=== PATIENT | male | born 2000 | race Caucasian/White ===

== ENCOUNTER 2025-06-08 10:50 | Emergency (ER) | payer OTHER, SELFPAY ==
--- NOTE | ~2025-06-08 | XR_ITS ---
EXAMINATION: XR KNEE, LEFT CLINICAL INFORMATION: fall. knee injury COMPARISON: None available. TECHNIQUE: Four views of the left knee. FINDINGS: Intercondylar tubercles are mildly peaked. There is a small amount of visible joint fluid. No fracture line identified. XR/XR knee LT 4V IMPRESSION: No fracture is demonstrated. Electronically signed by: Blair Beaver MD 06/08/2025 11:32 AM EDT
--- NOTE | ~2025-06-08 | XR_ITS ---
Exam: CR Xr Tibia Fibula Lt 2v TECHNIQUE: AP and lateral x-rays lower extremity, left tibia fibula INDICATION: Fall with pain, mid barrett Prior: None FINDINGS: No fracture, deformity, or foreign body is identified. Impression Unremarkable left lower leg Electronically signed by: Blair Beaver MD 06/08/2025 11:31 AM EDT RP
--- NOTE | ~2025-06-08 | CT_ITS ---
EXAMINATION: CT ABDOMEN PELVIS WITH IV CONTRAST HISTORY: AP, hx of adult intususseption COMPARISON: There are no prior studies for available comparison. TECHNIQUE: CT scan of the abdomen and pelvis was performed following administration of 85 mL Omnipaque 350 using standard departmental protocol. Coronal and sagittal reformatted images were generated and reviewed. This CT exam was performed with one or more of the following dose reduction techniques: automated exposure control, adjustment of the mA and/or kV according to patient size, use of iterative reconstruction technique. DLP: 291 mGy-cm FINDINGS: LOWER CHEST: The visualized lung bases are clear. There is no pleural effusion. CARDIOVASCULATURE: The heart is normal in size. There is no pericardial effusion. LIVER: The liver is normal in size and contour. No liver mass is identified. The hepatic and portal veins are patent. GALLBLADDER / BILE DUCTS: The gallbladder is unremarkable. There is no intra or extrahepatic biliary ductal dilatation. SPLEEN: The spleen is normal in size. No focal splenic lesion is identified. PANCREAS: The pancreas is unremarkable in appearance. ADRENAL GLANDS: Within normal limits. KIDNEYS/RETROPERITONEUM: No renal calculi are identified. There is no hydronephrosis. No renal masses are identified. LYMPH NODES: There are mesenteric lymph nodes in the right lower quadrant. Larger lymph nodes are upper normal in size measuring 9 to 10 mm in short axis. No enlarged lymph nodes. VASCULATURE: The abdominal aorta is normal in caliber. MESENTERY/PERITONEUM: No free fluid. No masses. There is no free intraperitoneal gas. STOMACH: Not optimally distended. Difficult to exclude mild circumferential proximal gastric wall or fold thickening. SMALL BOWEL: Mild wall thickening of the terminal ileum. Small bowel otherwise normal. No evidence of obstruction. No mass or intussusception seen. COLON: Mild wall thickening of the cecum and proximal ascending colon. Colon otherwise unremarkable. APPENDIX: Normal. URINARY BLADDER/PELVIC ORGANS: The urinary bladder is unremarkable. Prostate gland does not appear enlarged. BONES / SOFT TISSUES: No suspicious bony or soft tissue abnormalities. CT/CT abdomen pelvis w IV con IMPRESSION: Mild wall thickening of the terminal ileum, cecum and proximal ascending colon suggestive of ileocolitis. Upper normal-sized right lower quadrant mesenteric lymph nodes. No evidence of intussusception or obstruction. Electronically signed by: Debby Perez MD 06/08/2025 02:18 PM EDT RP
[2025-06-08 10:54] VITALS: BP 103/56; PULSE 78; RESP 18; TEMP 36.6; O2SAT 98; BMI 18.8
--- NOTE | 2025-06-08 10:58 | ED_ITS ---
HPI - General Adult General Chief complaint: Abdominal Pain Stated complaint: N/V/D Time Seen by Provider: 06/08/25 11:05 Source: patient and RN notes reviewed Mode of arrival: ambulatory Limitations: no limitations History of Present Illness ED Provider: Dari Trinidad PA-C HPI narrative: This is a 24-year-old male, with no known medical problems, who presents emergency department with concerns of nausea, vomiting, diarrhea for the last 4- 5 days. Patient denies any sick contacts. Denies any recent illness. He denies any fevers, chills, chest pain, shortness of breath. No bloody or black stool. He states that he has a history of intussusception as an adult, in his concerned that this may be causing him to have the symptoms. He does endorse marijuana use, no alcohol or any other drug use. Denies taking any medications prior to his arrival today. No other complaints or concerns at this time. Patient also reports left barrett pain after tripping on a step and landing into a metal bracket on the step. This occurred yesterday. No head strike or LOC. Pain worsens with weight-bearing. He is unsure when his last tetanus shot was. MD complaint: Nausea, vomiting, diarrhea Onset (ago): day(s) Relieving factors: none Exacerbating factors: none Associated symptoms: denies other symptoms Treatments prior to arrival: none Related Data Previous Rx's ?Medication ?Instructions ?Recorded metoclopramide HCl 10 mg tablet 10 mg PO Q6H PRN nause a and 02/06/24 (Reglan) vomiting #30 tabs omeprazole 40 mg capsule,delayed 40 mg PO DAILY #14 ca ps 02/06/24 release ketorolac 10 mg tablet 10 mg PO Q6H PRN pain #20 ta bs 10/28/24 methocarbamol 750 mg tablet 750 mg PO Q8H PRN pain, mo derate 10/28/24 #15 tabs oxycodone 5 mg tablet 5 mg PO Q6H PRN pain #16 tab s 10/28/24 amoxicillin 875 mg-potassium 1 tab PO BID 7 days #14 t abs 06/08/25 clavulanate 125 mg tablet oxycodone 5 mg tablet 5 mg PO Q6H PRN severe pain (scale 06/08/25 score 7-10) #12 tabs Allergies Allergy/AdvReac Type Severity Reaction Status Date / Time No Known Allergies Allergy Verified 06/08/25 10:56 Review of Systems 2 Review of Systems: Constitutional : No Fever, No Chills ENT/Mouth : No sore throat, No Rhinorrhea Eyes: No Eye Pain, No Swelling, No Redness Cardiovascular : No Chest Pain, No SOB Respiratory : No Cough, No Sputum Gastrointestinal : + Nausea, + Vomiting,+ Diarrhea, + abdominal Pain Genitourinary : No Dysuria, No Hematuria Musculoskeletal : No joint pain, No Myalgias, No Joint Swelling Skin : No Skin Lesions Neuro : No Weakness, No Numbness, No Headache All other systems reviewed and are negative Yes all other systems are reviewed and are negative Constitutional: Constitutional: Reports as per [facility] Past Medical History Medical History (Updated 06/09/25 @ 00:00 by Gage Martin) Cyclical vomiting Social History Social History (System 06/04/25 @ 07:43 by Mile Chapman) Patient Tobacco Use Status: Never used Tobacco Substance Use Type: Marijuana Advance Directives: No Advance Directives Information Provided: Yes Do you have a plan to hurt others: No Plan Physical Exam ED Vital Signs: Vital Signs - 24 hr 06/08/25 15:41 06/08/25 16:36 06/08/25 18:31 Temperature 97.5 F 97.5 F Pulse Rate 93 68 Respiratory Rate 14 18 Blood Pressure 102/48 L 107/56 L 103/54 L Pulse Oximetry 100 99 Oxygen Delivery Method Room Air Room Air 06/08/25 18:34 Temperature 97.5 F Pulse Rate 68 Respiratory Rate 18 Blood Pressure 103/54 L Pulse Oximetry 99 Oxygen Delivery Method Room Air BMI result Body Mass Index 18.8 Const General: cooperative, comfortable and no acute distress Orientation/consciousness: patient oriented x3 Limitations: no limitations HENMT Head: Yes normal to inspection, Yes normocephalic and Yes atraumatic Ears: hearing grossly normal bilaterally General nose exam: Normal external nose present Face and sinus: Yes normal facial exam Mouth: Normal oral and palatal mucosa present, oropharynx normal and moist mucous membranes Throat: Yes posterior oropharynx normal Eyes General: appearance normal, both eyes and all related structures Eyelids: Yes eyelids normal Conjunctivae: conjunctivae normal Sclerae: sclerae normal Pupils: Equal, round and reactive pupils present EOM: EOMs intact bilaterally Neck Neck: Yes normal visual inspection, Yes full ROM and Yes no lymphadenopathy Lymphatic: no lymphadenopathy noted Chest Chest palpation & inspection: normal inspection of the chest Resp Effort & Inspection: normal respiratory effort and able to speak in complete sentences Auscultation: clear to auscultation bilaterally, no crackles, no rales, no rhonchi and no wheezes Cardio Rate: regular rate Rhythm: regular rhythm Heart sounds: S1 normal heart sound present and S2 normal heart sound present GI Other: Abdomen is soft, with tenderness palpation in the periumbilical region, and suprapubic region. No rebound or guarding. Normoactive bowel sounds present in all 4 quadrants. Inspection: Yes normal to inspection Skin General skin exam: no rashes or lesions noted Trauma: no lacerations or abrasions Wounds: no wounds Neuro General: patient oriented x3 and moves all extremities Cranial nerves: Yes Equal, round and reactive pupils present Extrem Other: Left proximal tibia with superficial abrasion noted, tender to palpation, full ROM of the knee, no tenderness throughout the knee. General: Yes normal to inspection Right upper extremity: normal to inspection Left upper extremity: normal to inspection Right lower extremity: normal to inspection Left lower extremity: normal to inspection Course Course Course Narrative: RME: 24 yold male with pmh of insuspection presents to the ED for adominal pain, nausea, vomitting, and diarrhea for 3 days. secondary complaitn is left leg/barrett after hitting leg on going up the stairs. patient states no head trauam. labs and xray ordered Reevaluation(s) Reevaluation #1: Patient received in sign-out at change of shift pending re-evaluation. The patient does complain of some left upper abdominal pain. He reports a history of stomach ulcers and GI bleeding. He has been taking ibuprofen for his pain I encouraged him to discontinue the ibuprofen. He will continue Tylenol and I agree to give him a short course of oxycodone for breakthrough pain. He will be referred to GI and will be given the Augmentin that was read recommended by GI. He was able to pass a p.o. trial with no further vomiting. I also recommended the patient consume a bland diet. The patient reports he had a colonoscopy 1 month ago at [facility]. However he reports that there were only looking for hemorrhoids and I suspect there may have only performed with sigmoidoscopy. The patient will be referred back to GI Time: 18:23 Medications Administered Discontinued Medications Generic Name Dose Route Start Last Admin Trade Name Robin PRN Reason Stop Dose Admin Bacitracin 1 appl 06/08/25 14:06 06/08/25 14:24 Bacitracin Oint 0.9 Gm Packet TOPICAL 06/08/25 14:07 1 appl ONCE ONE Administration Protocol Diatrizoate Meglum/Diatrizoate Sod 30 ml 06/08/25 13:59 06/08/25 13:59 Diatrizoate Meglumine, Sodium 30 Ml Solution PO 06/08/25 14:00 30 ml ONCE ONE Administration Diphtheria/Tetanus/Acell Pertussis 0.5 ml 06/08/25 14:06 06/08/25 14:22 Diphth,Pertus(Acell),Tet Adult 0.5 Ml Syringe IM 06/08/25 14:07 0.5 ml .ONCE ONE Administration Sodium Chloride 1,000 mls @ 999 mls/hr 06/08/25 11:44 06/08/25 13:00 Ns IV 06/08/25 12:44 Infused .Q1H1M ONE Infusion Iohexol 100 ml 06/08/25 13:57 06/08/25 13:58 Iohexol 350 Mg/Ml 100 Ml Infus..Btl IV 06/08/25 13:58 85 ml ONCE ONE Administration Ketorolac Tromethamine 15 mg 06/08/25 17:22 06/08/25 17:28 Ketorolac Tromethamine 15 Mg/Ml Vial IVPUSH 06/08/25 17:23 15 mg ONCE ONE Administration Ondansetron HCl 4 mg 06/08/25 11:54 06/08/25 11:57 Ondansetron Hcl 4 Mg/2 Ml Vial IVPUSH 06/08/25 11:55 4 mg ONCE ONE Administration Medical Decision Making Medical Decision Making MDM Narrative: This is a 24-year-old male, with a past medical history of intussusception as an adult not requiring any intervention, who presents emergency department with concerns of nausea, vomiting, diarrhea times 4-5 days. On arrival, blood pressure mildly low at 103/56, he is afebrile, nontoxic appearing, speaking in full sentences under no acute distress. Abdomen is soft, with tenderness palpation in the periumbilical region as well as the suprapubic region. Differential diagnoses include acute gastroenteritis, gastritis, intussusception-unlikely, cyclical vomiting syndrome, electrolyte derangement. Will obtain labs to rule out any electrolyte derangement. 2:07 PM 06/08/2025 (Dari Trinidad PA-C): Labs returned, no leukocytosis, stable H&H, chemistry revealing no significant electrolyte derangement. COVID, flu, negative. Tib-fib, knee x-ray unremarkable. Awaiting CT abdomen and pelvis. We ordered this with IV and oral contrast given history of intussusception. 3:05 PM 06/08/2025 (Dari Trinidad PA-C): Patient re-evaluated, feeling much better after receiving IV fluids and Zofran. CT abdomen and pelvis returns revealing mild wall thickening of the terminal ileum, cecum, and proximal ascending colon suggestive of ileocolitis. I discussed this with Dr. Glasgow, he does report that patient can be admitted if his pain is intractable, or is unable to tolerate p.o.. Patient was re-evaluated, he is feeling much better after receiving IV fluids and IV antiemetics. I discussed with the Dr. Glasgow, he recommends obtaining stool sample. He is unable to obtain this. Dr. Glasgow states that he does recommend starting on antibiotics for treatment, and can follow-up outpatient, also recommending outpatient stool studies, however we can get I am started on antibiotics in the meantime. My attending physician recommended adding ESR and CRP. 5:07 PM 06/08/2025 (Dari Trinidad PA-C): Still awaiting ESR and CRP at this time. Called the laboratory, state that it will be another 15-20 minutes. We had updated patient's tetanus in the department, also given Lupillo wrap for leg. 5:23 PM 06/08/2025 (Dari Trinidad PA-C): ESR negative, patient re-evaluated, states that he is in a your lot of pain now. Patient has not received any pain medication throughout his entire ER stay. As mentioned before, Dr. Glasgow recommends if his pain is intolerable, and he is unable to tolerate p.o., he could be managed inpatient for further management. Sign-out given to my colleague, Ziggy O'Giorgio, PA-C pending re-evaluation plus or minus admission. Differential Diagnosis Differential Diagnoses: The differential diagnosis associated with the presentation includes See above Admission/Observation Consideration of admission/observation: Escalation of care including admission/observation considered Lab Data MDM Lab Attestation statement: I reviewed the patient's lab results. No leukocytosis, stable H&H, chemistry revealing no significant electrolyte derangement. ESR CRP within normal limits. Urine with high specific gravity, no evidence of infection. COVID and flu negative. 06/08/25 11:19 06/08/25 11:19 Labs: Lab Results 06/08/25 06/08/25 Range/Units 11:19 16:38 WBC 8.2 (4.8-10.8) X10*3/uL RBC 4.77 (4.60-5.80) X10*6/uL Hgb 14.1 (14.0-18.0) g/dl Hct 41.2 L (42.0-52.0) % MCV 86.4 (80.0-98.0) fL MCH 29.6 (27.0-33.0) pg MCHC 34.2 (31.0-36.0) g/dl RDW 13.5 (11.0-16.0) % Plt Count 191 D (160-400) X10*3/uL MPV 9.6 (9.4-12.4) fL Immature Gran % (Auto) 0.2 (0.0-0.4) % Neut % (Auto) 73.3 H (45-73) % Lymph % (Auto) 15.2 L (20-40) % [place] % (Auto) 9.2 (2-11) % Eos % (Auto) 1.6 (0-4) % Baso % (Auto) 0.5 (0-2) % Lymph # (Auto) 1.2 (1.2-4.9) X10*3/uL [place] # (Auto) 0.8 (0.1-1.2) X10*3/uL Eos # (Auto) 0.1 (0.0-0.4) X10*3/uL Baso # (Auto) 0.0 (0.0-0.2) X10*3/uL Abs Immat Gran (auto) 0.02 (0.00-0.03) X10*3/uL Absolute Neuts (auto) 6.0 (2.0-8.3) x10*3/uL Absolute Nucleated RBC 0.000 (0.0-0.012) X10*3/uL Nucleated RBC % (auto) 0.0 (0.0-0.2) /100WBC ESR 4 (0-15) MM/HR Sodium 141 (135-145) mmol/L Potassium 3.9 (3.3-5.1) mmol/L Chloride 111 H (96-108) mmol/L Carbon Dioxide 23 (22-29) mmol/L Anion Gap 11 L (12-20) BUN 10 (9-16) mg/dL Creatinine 0.94 (0.5-1.4) mg/dL Estim Creat Clear Calc 98.3 Estimated GFR > 60 Random Glucose 108 (60-115) mg/dL Calcium 9.1 D (8.4-10.2) mg/dL Total Bilirubin 0.6 (0.0-1.0) mg/dL AST 18 (5-37) U/L ALT 11 (0-40) U/L Alkaline Phosphatase 72 (39-117) U/L C-Reactive Protein < 0.10 (< or = 0.50) mg/dL Total Protein 6.5 (6.5-8.0) g/dL Albumin 4.6 (3.5-5.0) g/dL Lipase 25 (8-78) U/L Urine Color Yellow Urine Appearance Clear Urine pH 7.5 (5.0-9.0) Ur Specific [place] >= 1.030 H (1.005-1.025) Urine Protein Negative (Neg-Trace) mg/dL Urine Glucose (UA) Negative (Negative) mg/dL Urine Ketones Negative (Negative) mg/dL Urine Blood Negative (Negative) Urine Nitrite Negative (Negative) Ur Leukocyte Esterase Negative (Negative) COVID-19 (VINEET) Negative (Negative) COVID-19 Clin Com See Note Influenza Type A (CHRIS) Negative (Negative) Influenza Type B (CHRIS) Negative (Negative) Influenza A & B Note See Note Radiology Impression Discussion of test interpretation with radiology: I have reviewed the radiologist's reading. Radiologist Impression: FINDINGS: LOWER CHEST: The visualized lung bases are clear. There is no pleural effusion. CARDIOVASCULATURE: The heart is normal in size. There is no pericardial effusion. LIVER: The liver is normal in size and contour. No liver mass is identified. The hepatic and portal veins are patent. GALLBLADDER / BILE DUCTS: The gallbladder is unremarkable. There is no intra or extrahepatic biliary ductal dilatation. SPLEEN: The spleen is normal in size. No focal splenic lesion is identified. PANCREAS: The pancreas is unremarkable in appearance. ADRENAL GLANDS: Within normal limits. KIDNEYS/RETROPERITONEUM: No renal calculi are identified. There is no hydronephrosis. No renal masses are identified. LYMPH NODES: There are mesenteric lymph nodes in the right lower quadrant. Larger lymph nodes are upper normal in size measuring 9 to 10 mm in short axis. No enlarged lymph nodes. VASCULATURE: The abdominal aorta is normal in caliber. MESENTERY/PERITONEUM: No free fluid. No masses. There is no free intraperitoneal gas. STOMACH: Not optimally distended. Difficult to exclude mild circumferential proximal gastric wall or fold thickening. SMALL BOWEL: Mild wall thickening of the terminal ileum. Small bowel otherwise normal. No evidence of obstruction. No mass or intussusception seen. COLON: Mild wall thickening of the cecum and proximal ascending colon. Colon otherwise unremarkable. APPENDIX: Normal. URINARY BLADDER/PELVIC ORGANS: The urinary bladder is unremarkable. Prostate gland does not appear enlarged. BONES / SOFT TISSUES: No suspicious bony or soft tissue abnormalities. CT/CT abdomen pelvis w IV con IMPRESSION: Mild wall thickening of the terminal ileum, cecum and proximal ascending colon suggestive of ileocolitis. Upper normal-sized right lower quadrant mesenteric lymph nodes. No evidence of intussusception or obstruction. Electronically signed by: Debby Perez MD 06/08/2025 02:18 PM EDT RP Dictated By: Debby Perez Exam: CR Xr Tibia Fibula Lt 2v TECHNIQUE: AP and lateral x-rays lower extremity, left tibia fibula INDICATION: Fall with pain, mid barrett Prior: None FINDINGS: No fracture, deformity, or foreign body is identified. Impression Unremarkable left lower leg Electronically signed by: Blair Beaver MD 06/08/2025 11:31 AM EDT RP Dictated By: Blair Beaver MD EXAMINATION: XR KNEE, LEFT CLINICAL INFORMATION: fall. knee injury COMPARISON: None available. TECHNIQUE: Four views of the left knee. FINDINGS: Intercondylar tubercles are mildly peaked. There is a small amount of visible joint fluid. No fracture line identified. XR/XR knee LT 4V IMPRESSION: No fracture is demonstrated. Electronically signed by: Blair Beaver MD 06/08/2025 11:32 AM EDT Dictated By: Blair Beaver MD Critical Care Time Critical Care Time Critical Care Time: Yes Total Critical Care Time: 35 Attestation: I have personally provided critical care time exclusive of time spent on separately billable procedures. Time includes review of lab data, radiology results, discussion with consultants, and monitoring for potential decompensation. Intervention performed as documented. Discharge Plan Discharge Clinical Impression: Ileocolitis Patient Disposition: Home, Self-Care Instructions: Acute Nausea and Vomiting (ED), Acute Diarrhea (ED), Colitis (ED) Additional Instructions: You were seen in the emergency department in you were found to have ileocolitis, this can be caused by a bacteria, virus, or a autoimmune disorder. Your blood work was reassuring. Please drink plenty of fluids get plenty of rest. Stick to a bland diet over the next several days, avoid spicy, fried, or dairy containing products. A diet consisting of bananas, rice, applesauce, tea, toast, can be beneficial to help with nausea, vomiting, and diarrhea. We discussed your CAT scan with the GI specialist. We are going to start you on antibiotics. Please take full course even if your symptoms improve. I want you to follow-up with a cycling instructor. We also gave you a lab requisition form which you can drop off your stool to outpatient to ensure that you have no other illnesses causing you to have the symptoms. If any new or worsening symptoms occur including but not limited to worsening pain, bloody or black stool, unable to tolerate food or drink secondary to nausea and vomiting, chest pain, shortness for breath, please seek emergent care. Prescriptions: New amoxicillin-pot clavulanate 875-125 mg tablet 1 tab PO BID 7 Days Qty: 14 0RF oxycodone 5 mg tablet 5 mg PO Q6H PRN (Reason: severe pain (scale score 7-10)) Qty: 12 0RF Rx Instructions: Partial Fill upon patient request. No Action ketorolac 10 mg tablet 10 mg PO Q6H PRN (Reason: pain) Qty: 20 0RF Rx Instructions: maximum total duration of 5 days from all oral, intranasal, or parenteral formulations. The patient received an intramuscular dose of Toradol here in the emergency department. methocarbamol 750 mg tablet 750 mg PO Q8H PRN (Reason: pain, moderate) Qty: 15 0RF oxycodone 5 mg tablet 5 mg PO Q6H MDD 20 PRN (Reason: pain) Qty: 16 0RF Rx Instructions: Partial Fill upon patient request. metoclopramide HCl [Reglan] 10 mg tablet 10 mg PO Q6H PRN (Reason: nausea and vomiting) Qty: 30 0RF omeprazole 40 mg capsule,delayed release(DR/EC) 40 mg PO DAILY Qty: 14 0RF Referrals: [facility] [place] [facility] [Provider Group, Gastroenterology] Referral Note: Ileocolitis, question Crohn's disease Stand Alone Forms: Work/School Release Interventions: ED Discharge Assessment Last Done: 06/08/25 18:34 Discharge Date/Time: 06/08/25 18:39 Print Language: [place]
[2025-06-08 11:24] LABS: MANUAL DIFF FLAG NO
[2025-06-08 11:28] LABS: Hematocrit 41.2 % (42.0-52.0); Hemoglobin 14.1 g/dl (14.0-18.0); Imm Gran Abs Auto 0.02 X10*3/uL (0.00-0.03); Imm Gran Pct Auto 0.2 % (0.0-0.4); Lymphocytes Absolute Auto 1.2 X10*3/uL (1.2-4.9); Mean Corpuscular HGB Conc 34.2 g/dl (31.0-36.0); Mean Corpuscular Hemoglobin 29.6 pg (27.0-33.0); Mean Corpuscular Volume 86.4 fL (80.0-98.0); NRBC Abs Auto 0.000 X10*3/uL (0.0-0.012); NRBC Pct Auto 0.0 /100WBC (0.0-0.2); Platelet Count 191 X10*3/uL (160-400); Red Blood Count 4.77 X10*6/uL (4.60-5.80); White Blood Count 8.2 X10*3/uL (4.8-10.8)
[2025-06-08 11:41] LABS: Alanine Aminotransferase 11 U/L (0-40); Albumin Level 4.6 g/dL (3.5-5.0); Alkaline Phosphatase 72 U/L (39-117); Anion Gap 11 (12-20); Aspartate Amino Transferase 18 U/L (5-37); Blood Urea Nitrogen 10 mg/dL (9-16); Calcium 9.1 mg/dL (8.4-10.2); Carbon Dioxide 23 mmol/L (22-29); Chloride 111 mmol/L (96-108); Creatinine Clr Calc Pharmacy 98.3; Estimated Glomerular Filt Rate > 60; Lipase 25 U/L (8-78); Potassium 3.9 mmol/L (3.3-5.1); Sodium 141 mmol/L (135-145); Total Protein 6.5 g/dL (6.5-8.0)
[2025-06-08 11:45] LABS: COVID-19 Test Negative (Negative); IDNOW Serial# 55D5AD1C; IDNOW Serial# 58CA691E; Influenza B2 Negative (Negative)
[2025-06-08] MEDS: iohexoL 350 MG/ML 100 ML INFUS..BTL IV (13:58)
[2025-06-08] MEDS: Diphth,Pertus(ACell),Tet Adult 0.5 ML SYRINGE IM (14:22)
[2025-06-08 15:41] VITALS: BP 102/48; PULSE 93; RESP 14; TEMP 36.4; O2SAT 100
[2025-06-08 16:36] VITALS: BP 107/56
[2025-06-08 16:44] LABS: Appearance Urine Clear; Glucose Urine UA Negative (Negative); PH 7.5 (5.0-9.0); Specific Gravity - Urine >= 1.030 (1.005-1.025)
[2025-06-08 17:10] LABS: Erythrocyte Sedimentation Rate 4 MM/HR (0-15)
--- NOTE | 2025-06-08 17:31 | PC.NURSE ---
Pt given saltines for PO challenge.
[2025-06-08 18:31] VITALS: BP 103/54; PULSE 68; RESP 18; TEMP 36.4; O2SAT 99
[2025-06-08 18:34] VITALS: BP 103/54; PULSE 68; RESP 18; TEMP 36.4; O2SAT 99
== END 2025-06-08 18:39 | disposition home or self-care (01) ==
PROVIDERS: Physician Assistant; Physician Assistant Medical; Emergency Provider Emergency Medicine
DX: S81.812A Laceration without foreign body, left lower leg, initial encounter (principal); K52.9 Noninfective gastroenteritis and colitis, unspecified; M79.605 Pain in left leg; F12.90 Cannabis use, unspecified, uncomplicated; R11.2 Nausea with vomiting, unspecified; R10.12 Left upper quadrant pain; W26.9XXA Contact with unspecified sharp object(s), initial encounter; Y93.9 Activity, unspecified; Y92.9 Unspecified place or not applicable; Y99.8 Other external cause status; Z23 Encounter for immunization; Z11.52 Encounter for screening for COVID-19; Z79.899 Other long term (current) drug therapy
CPT/HCPCS: 73564; 73590; 74177; 80053; 81003; 83690; 85025; 85652; 86140; 87502; 87635; 90471; 90715; 96361; 96374; 96375; 99285; J1885; J2405; Q9967

== ENCOUNTER → 2025-06-08 10:57 | Outpatient (BNV) | payer OTHER, SELFPAY | PROVIDERS: Emergency Provider Emergency Medicine; Visit Provider Radiology Diagnostic Radiology | DX: K52.89 Other specified noninfective gastroenteritis and colitis (principal); M25.462 Effusion, left knee; M79.662 Pain in left lower leg | CPT/HCPCS: 73564; 73590; 74177 ==